=== PATIENT | male | born 1960 | race Caucasian/White ===

== ENCOUNTER 2018-07-22 08:12 | Day surgery (SDC) | payer OTHER ==
[~2018-07-22 08:12] MED LIST: PROPOFOL 200 MG INJ
[2018-07-22] MEDS ORDERED: PROPOFOL 40 ML (10:31)
[2018-07-22] MEDS ORDERED: LIDOCAINE 2% (SDV) 5 ML INJ (10:31)
== END 2018-07-22 12:30 | disposition home or self-care (01) ==
LOC: GIL 08:12
DX: Z12.11 Encounter for screening for malignant neoplasm of colon (principal); K64.8 Other hemorrhoids; E66.9 Obesity, unspecified; Z68.33 Body mass index [BMI] 33.0-33.9, adult
CPT/HCPCS: 45378